=== PATIENT | female | born 1950 | race Caucasian/White ===

== ENCOUNTER → 2016-05-28 | Outpatient (CLI) | payer MEDICARE ==
--- NOTE | 2016-05-28 21:52 | PN ---
A 65-year-old female patient who is coming in for a compliancy check. The patient underwent a split-night study and she was found to have severe MARTINEZ with an AHI of 53 and following that, she was given CPAP pressure of 14 cm of water. On today's followup, the patient is utilizing an AirFit P10 nasal pillow. She is very compliant. Her compliancy is 30 out of 30 over the past month and she is utilizing the CPAP on an average of 8.7 hours per night. The patient's leak is around 25 L/min and the patient's AHI while on treatment is down to 0.9. She is waking up refreshed and the patient is benefiting from CPAP therapy and she feels much more alert and awake during the day. She obviously has no complaints. She claims that she has lost weight and I see that her weight is down by around 15 pounds since her last evaluation here in the office. BP is 158/78, pulse 70, respirations 16, temperature is 98.0, saturation 97% on room air. Weight is 241. GENERAL APPEARANCE: Calm, comfortable. No acute distress. HEENT: Short neck, crowding of posterior pharynx. No goiter, neck masses. LUNGS: Clear to auscultation. HEART: Sounds are regular rate and rhythm. Normal S1, S2. No S3, S4. No murmurs. ABDOMEN: Soft, nontender. No organomegaly. EXTREMITIES: No edema. No cyanosis or clubbing. IMPRESSION: 1. Severe symptomatic obstructive sleep apnea with an apnea-hypopnea index of 53, currently on successful continuous positive airway pressure therapy at a pressure of 14 cm of water. 2. Morbid obesity with interval 15 pounds weight loss. 3. Hypersomnia, improved. PLAN: 1. Use CPAP therapy every night. 2. Compliancy data was checked. 3. Clinically, the patient is improved. 4. Encouraged further weight loss. 5. Implement good sleep hygiene measures. 6. Recommend sleeping at least 7 to 8 hours per night and the patient has exceeded that. 7. The patient will see me back in a year's time, earlier if needed.
== END | disposition home or self-care (01) ==
LOC: SLEEP 14:58
PROVIDERS: ATTEND Internal Medicine Critical Care Medicine
DX: G47.33 Obstructive sleep apnea (adult) (pediatric) (principal); E66.01 Morbid (severe) obesity due to excess calories; G47.10 Hypersomnia, unspecified

== ENCOUNTER → 2018-03-05 | Outpatient (CLI) | payer MEDICARE ==
[2018-03-05 16:43] LABS: Albumin 4.5 g/dL (3.80-4.90); Albumin/Globulin Ratio 2.65 (1.20-2.10); Calcium 9.4 mg/dL (8.7-10.3); Globulin 1.7 g/dL (1.6-3.3); LDL Cholesterol,Calculated 129.6 mg/dL (0.0-131.0); Potassium 4.3 mmol/L (3.5-5.5); Total Bilirubin 0.4 mg/dL (0.3-1.2); Total Protein 6.2 g/dL (6.2-8.2); VLDL Calculation 35.4 mg/dL (5.00-40.00)
== END | disposition home or self-care (01) ==
LOC: LABWHC1 09:23
PROVIDERS: ATTEND Internal Medicine Endocrinology, Diabetes & Metabolism
DX: E11.65 Type 2 diabetes mellitus with hyperglycemia (principal)
CPT/HCPCS: 36415; 80053; 80061; 82043; 82570; 83036

== ENCOUNTER → 2018-06-09 | Outpatient (CLI) | payer MEDICARE ==
[2018-06-09 16:54] LABS: Albumin 4.7 g/dL (3.80-4.90); Albumin/Globulin Ratio 2.47 (1.60-3.17); Anion Gap 11.7 mmol/L (4.00-12.00); Calcium 9.7 mg/dL (8.7-10.3); Carbon Dioxide 27.3 mmol/L (21.6-31.8); Globulin 1.9 g/dL (1.6-3.3); Potassium 4.5 mmol/L (3.5-5.5); Total Bilirubin 0.4 mg/dL (0.2-1.2); Total Protein 6.6 g/dL (6.2-8.2)
[2018-06-09 17:29] LABS: Hemoglobin A1C 8.6 % (4.0-6.0)
== END ==
LOC: LABWHC1 09:23
PROVIDERS: ATTEND Internal Medicine Endocrinology, Diabetes & Metabolism
DX: E11.65 Type 2 diabetes mellitus with hyperglycemia (principal)
CPT/HCPCS: 36415; 80053; 83036